=== PATIENT | female | born 1970 | race Caucasian/White ===

== ENCOUNTER 2016-12-15 14:20 | Emergency (ER) | payer OTHER ==
[~2016-12-15] VITALS: Ht 160 cm; Wt 78.0 kg
[2016-12-15 14:24] VITALS: Ht 160 cm; Wt 78.0 kg
[2016-12-15 16:10] LABS: ADD UMIC YES; URINE BILIRUBIN (Dip) NEGATIVE (NEGATIVE); URINE BLOOD (Dip) 3+ (NEGATIVE); URINE COLOR LT. YELLOW (YELLOW); URINE KETONES (Dip) TRACE (NEGATIVE); URINE LEUKOCYTE ESTERASE (Dip) NEGATIVE (NEGATIVE); URINE NITRITE (Dip) NEGATIVE (NEGATIVE); URINE TOTAL PROTEIN (Dip) TRACE (NEGATIVE); URINE UROBILINOGEN (Dip) 0.2 E.U./dL (0.1-1.0)
[2016-12-15 16:21] LABS: BACTERIA,URINE MODERATE; SQUAMOUS EPITHELIAL CELL,UR MODERATE; URINE RBCS >200 /HPF (0)
--- NOTE | 2016-12-15 16:49 | RADRPT ---
PROCEDURE: US Pelvis CLINICAL INDICATION: Abdominal Pain, vaginal bleeding TECHNIQUE: Multiple sonographic images of the pelvis were obtained utilizing a transabdominal and endovaginal technique. The images were reviewed on a PACS workstation. COMPARISON: None. LMP: 11/16/2016 FINDINGS: The uterus measures 9.2 x 4.8 x 5.9 cm. The endometrial echo complex measures 6 mm in thickness. T here is a 1.3 cm cystic lesion with low level internal echoes in the cervix consistent with an atypi fouzia Nabothian cyst. There is a 1.3 cm posterior intramural fundal fibroid. The right ovary measures 2.3 x 1.8 x 2.3 cm. The left ovary is not visualized. There is normal vascu lar flow in the right ovary. There is a complex cystic lesion with irregular borders and no significant peripheral vascular flow as well as an eccentric isoechoic component in the right ovary which may be a hemorrhagic/corpus lut eal cyst measuring up to 1.2 cm. No significant pelvic free fluid is identified. IMPRESSION: 1.3 cm fundal fibroid. 1.3 cm atypical Nabothian cyst. 1.2 cm complex cystic lesion in the right ovary may be a hemorrhagic/corpus luteal cyst. Nonvisualization of the left ovary. RPTAT: EE Physician Nelly Date Time Electronically viewed and signed by Physician Nelly on 12/15/2016 16:49 /
[2016-12-15 17:28] LABS: ADD SCAN DIFF NO
[2016-12-15 17:30] LABS: BASOPHIL # 0.1 10^3/ul (0.0-0.1); BASOPHILS % 0.5 % (0.0-2.0); EOSINOPHILS # 0.2 10^3/ul (0.0-0.5); EOSINOPHILS % 1.5 % (0.0-7.0); HEMATOCRIT 32.4 % (37.0-47.0); HEMOGLOBIN 11.2 g/dl (12.0-16.0); LYMPHOCYTES # 3.6 10^3/ul (0.8-2.9); LYMPHOCYTES % 36.7 % (15.0-51.0); MEAN CORPUSCULAR HEMOGLOBIN 32.5 pg (29.0-33.0); MEAN CORPUSCULAR HGB CONC 34.6 g/dl (32.0-37.0); MEAN CORPUSCULAR VOLUME 93.9 fl (82.0-101.0); MEAN PLATELET VOLUME 10.3 fl (7.4-10.4); MONOCYTE # 0.7 10^3/ul (0.3-0.9); MONOCYTES % 6.7 % (0.0-11.0); NEUTROPHIL # 5.2 10^3/ul (1.6-7.5); NEUTROPHILS % 53.9 % (39.0-77.0); PLATELET COUNT 275 10^3/UL (140-415); RED BLOOD COUNT 3.45 10^6/ul (4.20-5.40); RED CELL DISTRIBUTION WIDTH 12.9 % (11.5-14.5); WHITE BLOOD COUNT 9.7 10^3/ul (4.8-10.8)
[2016-12-15 17:47] LABS: INR 0.88; PARTIAL THROMBOPLASTIN TIME 27.8 Sec (25.0-35.0); PROTIME 11.9 Sec (12.2-14.2); PT RATIO 0.9
[2016-12-15 17:51] LABS: POTASSIUM 4.2 mmol/L (3.5-5.1)
[2016-12-15 17:53] LABS: ALBUMIN/GLOBULIN RATIO 1.21; BILIRUBIN,INDIRECT 0.1 mg/dl (0-1.1); BILIRUBIN,TOTAL 0.1 mg/dl (0.2-1.3); CALCIUM 8.9 mg/dl (8.4-10.2); CREATININE 0.7 mg/dl (0.44-1.00); TOTAL PROTEIN 7.3 g/dl (6.1-8.1)
[2016-12-15] MEDS ORDERED: ORTNOV PO (18:11)
[2016-12-15 18:32] VITALS: BP 121/79; PULSE 71; RESP 16
--- NOTE | 2016-12-15 19:14 | ERD ---
ER Documentation Chief Complaint Date/Time DATE: 12/15/16 TIME: 19:12 Chief Complaint vaginAL BLEEDING X 1 MOS HPI Patient is a 46-year-old female with dysfunctional uterine bleeding and diabetes who presents with vaginal bleeding. She said that she has had vaginal bleeding for 1 month. She feels weak all over. She feels dizzy and tired. She says that her doctor prescribed her medroxyprogesterone without much help. She is not on blood thinners currently. She says that she is not . Her doctor is Dr. Brito. ROS All systems reviewed and are negative except as per history of present illness. Medications Home Meds Active Scripts Norethindrone-Ethinyl Estradiol (Ortho-Novum ()) 0.035-1 Mg Tablet, 1 TAB PO DAILY for 28 Days, TAB Prov:EUGENIO KRAUS MD 12/15/16 Allergies Allergies: Coded Allergies: No Known Allergy (Unverified , 12/15/16) PMhx/Soc Positive for diabetes and dysfunctional uterine bleeding Medical and Surgical Hx: pt denies Surgical Hx Hx Substance Use: No Hx Tobacco Use: No Smoking Status: Never smoker FmHx Family History: diabetes Physical Exam Vitals Vital Signs Date Time Temp Pulse Resp B/P Pulse Ox O2 Delivery O2 Flow Rate FiO2 12/15/16 18:32 71 16 121/79 100 Room Air 12/15/16 14:24 99.1 74 18 133/74 99 Physical Exam Const: No acute distress Head: Atraumatic Eyes: Normal Conjunctiva ENT: Normal External Ears, Nose and Mouth. Neck: Full range of motion..~ No meningismus. Resp: Clear to auscultation bilaterally Cardio: Regular rate and rhythm, no murmurs Abd: Soft, non tender, non distended. Normal bowel sounds Skin: No petechiae or rashes Back: No midline or flank tenderness Ext: No cyanosis, or edema Neur: Awake and alert Psych: Normal Mood and Affect Result Diagram: 12/15/16 1720 12/15/16 1720 Results 24 hrs Laboratory Tests Test 12/15/16 16:00 12/15/16 17:20 Urine Color LT. YELLOW Urine Clarity SLIGHTLY CLOUDY Urine pH 6.0 Urine Specific [place] 1.020 Urine Ketones TRACE Urine Nitrite NEGATIVE Urine Bilirubin NEGATIVE Urine Urobilinogen 0.2 E.U./dL Urine Leukocyte Esterase NEGATIVE Urine Microscopic RBC >200/HPF Urine Microscopic WBC 0-2/HPF Urine Squamous Epithelial Cells MODERATE Urine Bacteria MODERATE Urine Hemoglobin 3+ Urine Glucose 0.5%% Urine Total Protein TRACE White Blood Count 9.710^3/ul Red Blood Count 3.4510^6/ul Hemoglobin 11.2g/dl Hematocrit 32.4% Mean Corpuscular Volume 93.9fl Mean Corpuscular Hemoglobin 32.5pg Mean Corpuscular Hemoglobin Concent 34.6g/dl Red Cell Distribution Width 12.9% Platelet Count 28971^3/UL Mean Platelet Volume 10.3fl Neutrophils % 53.9% Lymphocytes % 36.7% Monocytes % 6.7% Eosinophils % 1.5% Basophils % 0.5% Nucleated Red Blood Cells % 0.0/100WBC Neutrophils # 5.210^3/ul Lymphocytes # 3.610^3/ul Monocytes # 0.710^3/ul Eosinophils # 0.210^3/ul Basophils # 0.110^3/ul Nucleated Red Blood Cells # 0.010^3/ul Prothrombin Time 11.9Sec Prothrombin Time Ratio 0.9 INR International Normalized Ratio 0.88 Activated Partial Thromboplast Time 27.8Sec Sodium Level 140mmol/L Potassium Level 4.2mmol/L Chloride Level 110mmol/L Carbon Dioxide Level 28mmol/L Anion Gap 6 Blood Urea Nitrogen 10mg/dl Creatinine 0.70mg/dl Glucose Level 132mg/dl Calcium Level 8.9mg/dl Total Bilirubin 0.1mg/dl Direct Bilirubin 0.00mg/dl Indirect Bilirubin 0.1mg/dl Aspartate Amino Transf (AST/SGOT) 17IU/L Alanine Aminotransferase (ALT/SGPT) 28IU/L Alkaline Phosphatase 79IU/L Total Protein 7.3g/dl Albumin 4.0g/dl Globulin 3.30g/dl Albumin/Globulin Ratio 1.21 Lipase 102U/L Procedures/MDM Patient is a 46-year-old female presents with dysfunctional uterine bleeding. She is not I doubt or ectopic . Her hemoglobin is 11.2 and she does not require transfusion at this time but there is anemia. The patient will need close follow-up with her primary doctor. I will give her a prescription for Ortho-Novum but she may require hysterectomy and we did discuss this. Departure Diagnosis: Primary Impression: Dysfunctional uterine bleeding Additional Impression: Anemia Anemia type: unspecified type Qualified Code: D64.9 - Anemia, unspecified type Condition: Fair Patient Instructions: Dysfunctional Uterine Bleeding Referrals: LUZ HANEY MD Additional Instructions: Call your primary care doctor TOMORROW for an appointment during the next 1-2 days.See the doctor sooner or return here if your condition worsens before your appointment time. EUGENIO KRAUS MD December 15, 2016 19:14
== END 2016-12-15 18:34 | disposition home or self-care (01) ==
LOC: FTE 14:20
DX: N93.8 Other specified abnormal uterine and vaginal bleeding (principal); D64.9 Anemia, unspecified; E11.9 Type 2 diabetes mellitus without complications; R10.2 Pelvic and perineal pain
CPT/HCPCS: 76830; 76856; 80053; 81001; 83690; 85025; 85610; 85730; Z7502